=== PATIENT | female | born 1980 | race Caucasian/White ===

== ENCOUNTER 2016-08-26 21:27 | Emergency (ER) | payer OTHER ==
[~2016-08-26] VITALS: Ht 167.6 cm; Wt 178.1 kg
[~2016-08-26 21:27] MED LIST: ARIP1TAB46 PO; BUSP5TAB3 PO; LORA-474 PO; METH750T2 PO; PERC5TAB12 PO; SYNT50TA PO; VIST25CA PO; WELL150T PO
[2016-08-26 21:35] VITALS: BP 137/97; PULSE 113; RESP 16; TEMP 98; O2SAT 97
--- NOTE | 2016-08-26 23:33 | PD ---
HPI Chief Complaint: Pain: Acute or Chronic Time Seen by Provider: 23:20 Travel History International Travel<30 days: No Contact w/Intl Traveler<30days: No Traveled to known affect area: No History of Present Illness HPI The patient is a 36-year-old female with a history of cellulitis of the left leg. She has been seen at [facility] emergency department as well as her primary care physician, Dr. Mcneil in [facility]. She has been on clindamycin for this. Initially she was started on amoxicillin and then switched to doxycycline. She did better on doxycycline but she ran out and was put on clindamycin. She is allergic to sulfa. She has had a few more days of clindamycin left. She states when she elevates her leg she can feel pain in her left knee. PFSH Past Medical History Anemia: Yes Anxiety: Yes Depression: Yes Cancer: Yes (CERVICAL CANCER -RECENTLY DX) Diabetes: No Diminished Hearing: No Psychiatric: Yes Migraines: Yes Thyroid Disease: Yes (HYPOTHYROID) : 5 Para: 5 Miscarriage: 0 : 0 Ovarian Cysts: Yes Past Surgical History Abdominal Surgery: Yes (GASTRIC SLEEVE,UMBILICAL HERNIA REPAIRS X2) Section: Yes (X5) Cholecystectomy: Yes Hysterectomy: Yes Tonsillectomy: Yes Social History Alcohol Use: Yes (DRINKS ON OCCASION) Tobacco Use: No Substance Use: No Allergies-Medications (Allergen,Severity, Reaction): Coded Allergies: Septra (Verified Allergy, Intermediate, VOMITING/DIARRHEA/CHEST TIGHTNESS , 03/30/14) Reported Meds & Prescriptions Reported Meds & Active Scripts Active Clindamycin (Clindamycin HCl) 300 Mg Cap 300 Mg PO Q6H 10 Days Doxycycline Hyclate 100 Mg Cap 100 Mg PO BID Methocarbamol 750 Mg Tab 750 Mg PO QID PRN Reported Buspar (Buspirone HCl) 5 Mg Tab 5 Mg PO TID Synthroid 50 mcg (Levothyroxine Sodium) 50 Mcg Tab 50 Mcg PO DAILY Review of Systems Except as stated in HPI: all other systems reviewed are Neg Physical Exam Narrative GENERAL: Well-nourished, well-developed patient. The vital signs show a pulse rate of 113 with blood pressure 137/97. SKIN: Focused skin assessment warm/dry. There is no evidence of any cellulitis other than at the foot. She does not have any pitting edema present. HEAD: Normocephalic. EYES: No scleral icterus. No injection or drainage. NECK: Supple, trachea midline. No JVD or lymphadenopathy. CARDIOVASCULAR: Regular rate and rhythm without murmurs, gallops, or rubs. RESPIRATORY: Breath sounds equal bilaterally. No accessory muscle use. GASTROINTESTINAL: Abdomen soft, non-tender, nondistended. MUSCULOSKELETAL: No cyanosis, or edema. There is no cord palpated in the calf. BACK: Nontender without obvious deformity. No CVA tenderness. Data Data Last Documented VS Vital Signs Date Time Temp Pulse Resp B/P Pulse Ox O2 Delivery O2 Flow Rate FiO2 08/26/16 23:34 20 08/26/16 21:35 98.0 113 137/97 97 MDM Medical Decision Making Medical Screen Exam Complete: Yes Emergency Medical Condition: Yes Medical Record Reviewed: Yes Differential Diagnosis Worsening cellulitis, cellulitis unchanged, lymphadenitis Narrative Course I can find no evidence that her cellulitis is worsening. She does feel pain with elevation and this may be the lymph system carrying the infection to the popliteal nodes. This is where she feels some pain when she elevates her legs. There is no clinical evidence that the cellulitis is worsening, she has no erythema above the foot. Diagnosis Primary Impression: Cellulitis of left foot Additional Instructions: As we discussed, elevation helps the lymph flow as well as the blood flow. The pain may be from the lymph system caring away the germs from your foot to be killed behind the knee where the lymph nodes are. Follow-up with your primary care physician next week. Med/Other Pt SpecificInfo: Prescription(s) given Scripts Clindamycin 300 Mg [id number] Mg PO Q6H 10 Days Ref 0 Prov:Basilio Mercado MD 08/26/16 Doxycycline Hyclate 100 Mg [id number] Mg PO BID #28 CAP Ref 0 Prov:Basilio Mercado MD 08/26/16 Disposition: 01 DISCHARGE HOME Condition: Stable Basilio Mercado MD August 26, 2016 23:33
[2016-08-26] MEDS ORDERED: DOXY100C PO (23:39)
[2016-08-26] MEDS ORDERED: CLIN1CAP6 PO (23:39)
[2016-08-26] MEDS ORDERED: DOXYCYCLINE HYCLATE 100 MG CAP PO ONE (23:45)
[2016-08-26] MEDS ORDERED: AMIT50TA3 PO (23:49)
[2016-08-26] MEDS ORDERED: TOPA25TA8 PO (23:49)
[2016-08-26] MEDS ORDERED: LEVO.2 PO (23:49)
[2016-08-26] MEDS ORDERED: ALPR1TAB3 PO (23:49)
[2016-08-26] MEDS ORDERED: OMEP40CA2 PO (23:49)
[2016-08-26] MEDS ORDERED: METF500T PO (23:49)
[2016-08-26] MEDS ORDERED: BUSP15TA PO (23:49)
[2016-08-26 23:50] VITALS: BP 127/68
== END 2016-08-27 00:17 | disposition home or self-care (01) ==
LOC: PHED 21:27
DX: L03.116 Cellulitis of left lower limb (principal); D64.9 Anemia, unspecified; F32.9 Major depressive disorder, single episode, unspecified; F41.9 Anxiety disorder, unspecified; E03.9 Hypothyroidism, unspecified; Z88.2 Allergy status to sulfonamides
CPT/HCPCS: 99283

== ENCOUNTER 2018-04-29 13:57 | Inpatient (IN) ==
[2018-04-29] MEDS ORDERED: Morphine Inj 4 MG/ML Vial IV.PUSH ONE (14:10)
--- NOTE | 2018-04-29 14:16 | ED ---
HPI General Chief Complaint: Abdominal Pain Stated Complaint: post op pain Time Seen by Provider: 04/29/18 14:10 Source: patient and family Mode of arrival: ambulatory Limitations: no limitations History of Present Illness HPI narrative: 37-year-old morbidly obese female patient with history of Charlie-en -Y bypass surgery, complicated by gastric ulcer and perforation, had surgery by Dr. Willis seen last week, and was released, had been seen again on Tuesday by Dr. Guidry who found that she had a UTI, returns to the ER today because of continued left upper quadrant abdominal pains. She denies any vomiting, fevers , or other symptoms. Her pain is in the left upper quadrant where the G-tube site is and is currently rated an 8 out of 10, constant and sharp. Modifying Factors: None Associated Signs & Symptoms: Left upper quadrant abdominal pain Risk Factors: Recent surgery Related Data Home Medications Medication Instructions Recorded Confirmed levothyroxine 75 mcg PO DAILY 04/20/18 04/29/18 levothyroxine 200 mcg PO DAILY 04/20/18 04/29/18 Previous Rx's Medication Instructions Recorded ciprofloxacin [Cipro] 500 mg PO Q12H #65 ml 04/26/18 hydrocodone-acetaminophen 15 ml PO Q6H PRN #180 ml 04/26/18 Allergies Allergy/AdvReac Type Severity Reaction Status Date / Time sulfamethoxazole Allergy Intermediate VOMITING/DIARRHEA/CHEST Verified 04/25/18 22:58 TIGHTNESS trimethoprim Allergy Intermediate VOMITING/DIARRHEA/CHEST Verified 04/25/18 22: 58 TIGHTNESS Review of Systems ROS: all other systems reviewed are negative [facility] Medical History Medical History Anxiety (Acute) GERD (gastroesophageal reflux disease) (Acute) H/O: hysterectomy (Acute) Hernia (Acute) Thyroid disease (Acute) Surgical History Surgical History Gastric bypass status for obesity (Acute) Hx of cholecystectomy (Acute) Hx of tonsillectomy (Acute) Previous section (Acute) Social History Social History Substance History: No History of Abuse Second Hand Smoke Exposure: Yes Smoking Status: Never smoker How Often Do You Have a Drink Containing Alcohol: Monthly or less Recent Travel in [facility] within the Last 8 Weeks: No Recent Out of Country Travel within the Last 8 Weeks: No Immunization History Tetanus Immunization: <5 Years Exam Narrative Exam Narrative: GENERAL: Well-developed morbidly obese female patient currently in moderate distress. Awake and oriented x3. SKIN: Focused skin assessment warm/dry. HEAD: Atraumatic. Normocephalic. EYES: Pupils equal and round. No scleral icterus. No injection or drainage. ENT: No nasal bleeding or discharge. Mucous membranes pink and moist. NECK: Trachea midline. No JVD. CARDIOVASCULAR: Regular rate and rhythm. No murmur appreciated. RESPIRATORY: No accessory muscle use. Clear to auscultation. Breath sounds equal bilaterally. GASTROINTESTINAL: Abdomen soft, obese, surgical incision sites healing well, J- tube appears to be in place, mildly tender palpation in the left upper quadrant , nondistended. MUSCULOSKELETAL: No obvious deformities. No clubbing. No cyanosis. No edema. NEUROLOGICAL: Awake and alert. No obvious cranial nerve deficits. Motor grossly within normal limits. Normal speech. PSYCHIATRIC: Appropriate mood and affect; insight and judgment normal. Course Initial Documented Vital Signs Temperature 98.7 F 04/29/18 13:59 Pulse Rate 90 04/29/18 13:59 Respiratory Rate 18 04/29/18 13:59 Blood Pressure 157/74 H 04/29/18 13:59 Pulse Oximetry 96 04/29/18 13:59 Last Documented Vital Signs Temperature 98.7 F 04/29/18 13:59 Pulse Rate 90 04/29/18 13:59 Respiratory Rate 18 04/29/18 13:59 Blood Pressure 157/74 H 04/29/18 13:59 Pulse Oximetry 96 04/29/18 13:59 Medical Decision Making [facility] Narrative Medical decision making narrative: CAT scan showing left lower lobe infiltrates concerning for underlying pneumonia. IV antibiotics were initiated in the ER after cultures were drawn. Lab work does show some leukocytosis. Patient has been on Cipro for the last 5 days. At this point, my plan would be to admit the patient for further treatment and also will need evaluation with Dr. Willis. Case is discussed with Dr. Rouse who is covering for Dr. Willis seen and there is supposed to be a left upper quadrant drain and a G-tube there. Patient can get G-tube feedings. Case is then discussed with Dr. Allen for admission Medical Screen Exam Complete: Yes Emergency Medical Condition: Yes Differential Diagnosis Differential Diagnosis: Surgical site tenderness versus gastritis versus pancreatitis versus acute intra-abdominal processes versus abscess formation Lab Data Lab results reviewed: Yes I reviewed the patient's lab results. Result diagrams: 04/29/18 15:30 04/29/18 15:30 Lab Results 04/29/18 04/29/18 Range/Units 15:30 15:30 WBC 11.2 H (4.0-11.0) th/mm3 RBC 3.84 L (4.00-5.30) mil/mm3 Hgb 11.3 L (11.6-15.3) gm/dL Hct 32.8 L (35.0-46.0) % MCV 85.4 (80.0-100.0) fL MCH 29.4 (27.0-34.0) pg MCHC 34.4 (32.0-36.0) % RDW 14.1 (11.6-17.2) % Plt Count 404 D (150-450) th/mm3 MPV 6.9 L (7.0-11.0) fL Neut % (Auto) 82.9 H (16.0-70.0) % Lymph % (Auto) 8.5 L (9.0-44.0) % Mcduffie % (Auto) 7.4 (0.0-8.0) % Eos % (Auto) 0.9 (0.0-4.0) % Baso % (Auto) 0.3 (0.0-2.0) % Neut # (Auto) 9.3 H (1.8-7.7) th/mm3 Lymph # (Auto) 1.0 (1.0-4.8) th/mm3 Mcduffie # (Auto) 0.8 (0.0-0.9) th/mm3 Eos # (Auto) 0.1 (0.0-0.4) th/mm3 Baso # (Auto) 0.0 (0.0-0.2) th/mm3 WBC Differential . Differential Comment Auto diff final Sodium 137 (136-145) meq/L Potassium 4.0 (3.5-5.1) meq/L Chloride 102 (98-107) meq/L Carbon Dioxide 27.6 (21.0-32.0) meq/L Anion Gap 7 (5-15) meq/L BUN 11 (7-18) mg/dL Creatinine 0.78 (0.50-1.00) mg/dL Estimated GFR 84 L (>89) mL/min Random Glucose 115 H (74-106) mg/dL Calcium 8.8 (8.5-10.1) mg/dL Magnesium 2.3 (1.5-2.5) mg/dL Total Bilirubin 0.3 (0.2-1.0) mg/dL AST 35 (15-37) U/L ALT 56 H (10-53) U/L Alkaline Phosphatase 240 H (45-117) U/L Total Protein 7.8 (6.4-8.2) g/dL Albumin 2.2 L (3.4-5.0) g/dL Lipase 76 (73-393) U/L Imaging Data Attestation: I personally reviewed and interpreted this imaging study as follows : Radiologist's impression: Abdomen/Pelvis CT 04/29/18 14:10 CONCLUSION: 1. Moderate size left pleural effusion and left lower lobe consolidation with volume loss. 2. Percutaneous postsurgical catheter in the left upper quadrant. No evidence of free fluid or air. 3. Significant streak-like motion degradation of the mid and lower images may obscure subtle findings. Discharge Plan Discharge Disposition Patient Disposition: ED Admit(ED Internal Use Only) Discharge Condition Condition: Stable Discharge Order Discharge Orders: ED Use Only Admit Order (Routine); Ordered 04/29/18 Ordered By: Luis Enrique Zayas Discharge Details Anticipated Discharge Date: 04/29/18 Diagnosis: Pneumonia Physicians Team ED Provider: Luis Enrique Zayas Rxs /Orders / Referrals /Forms Prescriptions: No Action hydrocodone-acetaminophen 7.5-325 mg/15 mL solution 15 ml PO Q6H PRN (Reason: Acute pain) Qty: 180 RF: 0 ciprofloxacin [Cipro] 500 mg/5 mL suspension,microcapsule recon 500 mg PO Q12H Qty: 65 RF: 0 levothyroxine 75 mcg Tablet 75 mcg PO DAILY RF: 0 levothyroxine 200 mcg Tablet 200 mcg PO DAILY RF: 0 Status ED Status: With Doctor
[2018-04-29 15:42] LABS: Baso % (Auto) 0.3 % (0.0-2.0); Eos # (Auto) 0.1 th/mm3 (0.0-0.4); Eos % (Auto) 0.9 % (0.0-4.0); Hematocrit 32.8 % (35.0-46.0); Hemoglobin 11.3 gm/dL (11.6-15.3); Lymph % (Auto) 8.5 % (9.0-44.0); Mean Corpuscular HGB Conc 34.4 % (32.0-36.0); Mean Corpuscular Hemoglobin 29.4 pg (27.0-34.0); Mean Corpuscular Volume 85.4 fL (80.0-100.0); Mean Platelet Volume 6.9 fL (7.0-11.0); Mono # (Auto) 0.8 th/mm3 (0.0-0.9); Mono % (Auto) 7.4 % (0.0-8.0); Neut # (Auto) 9.3 th/mm3 (1.8-7.7); Neut % (Auto) 82.9 % (16.0-70.0); Platelet Count 404 th/mm3 (150-450); Red Blood Count 3.84 mil/mm3 (4.00-5.30); Red Cell Distribution Width 14.1 % (11.6-17.2); White Blood Count 11.2 th/mm3 (4.0-11.0)
[2018-04-29 16:00] LABS: Albumin 2.2 g/dL (3.4-5.0); Anion Gap 7 meq/L (5-15); Aspartate Aminotransferase 35 U/L (15-37); Blood Urea Nitrogen 11 mg/dL (7-18); Calcium 8.8 mg/dL (8.5-10.1); Carbon Dioxide 27.6 meq/L (21.0-32.0); Chloride 102 meq/L (98-107); Glomerular Filtration Rate 84 mL/min (>89); Glucose,Random 115 mg/dL (74-106); Lipase 76 U/L (73-393); Magnesium 2.3 mg/dL (1.5-2.5); Sodium 137 meq/L (136-145)
[2018-04-29 16:04] LABS: Alanine Aminotransferase 56 U/L (10-53); Alkaline Phosphatase 240 U/L (45-117); Total Protein 7.8 g/dL (6.4-8.2)
--- NOTE | 2018-04-29 18:39 | CT ---
EXAM DATE: 04/29/2018 6:16 PM EST AGE/SEX: 37 years / Female INDICATIONS: Bariatric surgery two weeks ago; patient complains of pain and intermittent fever. CLINICAL DATA: This is the patient's initial encounter. Patient reports that signs and symptoms have been present for 3 days and indicates a pain score of 7/10. MEDICAL/SURGICAL HISTORY: Gastroesophageal reflux disease. Hypothyroidism. Hernia Hysterectom y. section. Cholecystectomy. Gastric bypass, tonsillectomy ORAL CONTRAST: No oral contrast ingested. RADIATION DOSE: 33.41 CTDI (mGy) ; Patient body habitus COMPAR[place]: [facility] [place] & [place]ELVIS W CONTRAST, 04/14/2018. . TECHNIQUE: Multiple contiguous axial images were obtained through the abdomen and pelvis following b olus infusion of 96 ml Omnipaque 350 (iohexol) nonionic water-soluble contrast as a single exam dos e. No oral contrast ingested. Using automated exposure control and adjustment of the mA and/or kV ac cording to patient size, radiation dose was kept as low as reasonably achievable to obtain optimal di agnostic quality images. DICOM format image data is available electronically for review and comparis on. FINDINGS: There is degradation of image quality in the mid and lower abdomen due to a combination of body size exceeding the [id number] of the scanner and multiple metallic wires within the scanning field of view. Lower Lungs: Interval development of moderate-sized left pleural effusion measuring 2.2 cm and consol idation with fine loss in the left lower lung. Liver: The liver has a homogeneous density without space-occupying lesion. There is no dilation of th e biliary tree. Spleen: Homogeneous density without enlargement. Pancreas: Unremarkable without mass or calcification. Kidneys: Normal in size and shape. No evidence of mass or hydronephrosis. Adrenal Glands: Unremarkable. Aorta: The aorta and proximal iliac vessels are grossly unremarkable without aneurysmal dilation. Bowel/Mesentery: There is a percutaneous tube passing into the left upper quadrant underneath the le ft hemidiaphragm and passing through the region of the gastric surgery. Anastomosis suture in the sto mach. No dilated loops of small or large bowel. No evidence of free intraperitoneal gas. Abdominal Wall: Intact. Retroperitoneum: No evidence of adenopathy in the retrocrural, para-aortic, or deep pelvic regions. Bladder: Contours are smooth. Reproductive Organs: No abnormal masses or calcifications seen. Inguinal: The inguinal region is unremarkable without evidence of adenopathy. Bony Structures: Unremarkable. CONCLUSION: 1. Moderate size left pleural effusion and left lower lobe consolidation with volume loss. 2. Percutaneous postsurgical catheter in the left upper quadrant. No evidence of free fluid or air. 3. Significant streak-like motion degradation of the mid and lower images may obscure subtle finding s. Electronically signed by: Jerry Mcclellan MD Board Certified Radiologist 04/29/2018 6:38 PM EST
[2018-04-29] MEDS ORDERED: Azithromycin Inj 500 MG in Sodium Chlor 0.9% Inj 250 ML IV.SIG ONE (18:51)
[2018-04-29] MEDS ORDERED: Bisacodyl 10 MG Supp RECTAL PRN (19:34)
[2018-04-29] MEDS ORDERED: Morphine Sulfate Inj 2 MG/ML Vial IV.PUSH PRN (19:34)
[2018-04-29] MEDS ORDERED: Acetaminophen 325 MG Tablet PO PRN (19:34)
--- NOTE | 2018-04-29 19:38 | P.HPIM ---
History of Present Illness Primary Care Physician: alma Mireles History of Present Illness: This is a 37-year-old female with a PMH of Depression, Morbid Obesity, h/o Charlie-en-Y and Hypothyroidism who presented to the ER w/ complaints of abdominal and back pain. Recent admit 04/14-04/24/18 for perforated ulcer, s/p repair by Dr. Almonte w/ J tube placement for nutrition and full liquid diet, was d/c'd home w/ [facility] [place], returned to ER on 04/26/18 for c/o abdominal pain, found to have UTI and d/c'd home on Cipro PO. Returns now w/ ongoing abdominal pain in addition to back pain. States pain is constant, worse w/ movement, back pain worse w/ deep breath, currently 7/10, non- radiating. Denies fever or chills. No nausea, vomiting or diarrhea. On arrival, BP 157/74, HR 90, O2 sat 96% on RA, Afebrile. WBC 11.2. Chemistry essentially unremarkable. UA with persistent UTI. CT Abdomen/Pelvis moderate left pleural effusion and left lower lobe consolidation, post surgical catheter left upper quadrant no free fluid or air. Findings reviewed by ER physician w/ Dr. Rouse, no emergent surgical intervention indicated at this time. S/p Cefepime/Zithro in ER. Diagnosis (1) PNA (pneumonia): (2) UTI (urinary tract infection): (3) Failure of outpatient treatment: (4) Gastric perforation: Inpatient Certification Inpatient Certification: I certify that the inpatient services were ordered in accordance with Medicare regulations governing the order. This includes certification that hospital inpatient services are reasonable and necessary and in the case of services not specified as inpatient-only under 42 CFR 419.22(n), that they are appropriately provided as inpatient services in accordance to with the 2-midnight benchmark under 43 CFR 412.3(e) Estimated Total Length of Stay (Days): 2 Plans for Post Hospital Care: Not yet determined Review of Systems PAST FAMILY HISTORY: Reviewed. No h/o DM or CAD Review of Systems: all other systems reviewed are negative [facility] Medical History Medical History Anxiety (Acute) GERD (gastroesophageal reflux disease) (Acute) H/O: hysterectomy (Acute) Hernia (Acute) Thyroid disease (Acute) Surgical History Surgical History Gastric bypass status for obesity (Acute) Hx of cholecystectomy (Acute) Hx of tonsillectomy (Acute) Previous section (Acute) Social History Social History Substance History: No History of Abuse Second Hand Smoke Exposure: Yes Smoking Status: Never smoker How Often Do You Have a Drink Containing Alcohol: Monthly or less Recent Travel in [facility] within the Last 8 Weeks: No Recent Out of Country Travel within the Last 8 Weeks: No Immunization History Tetanus Immunization: <5 Years Medications and Allergies Allergies Allergy/AdvReac Type Severity Reaction Status Date / Time sulfamethoxazole Allergy Intermediate VOMITING/DIARRHEA/CHEST Verified 04/25/18 22:58 TIGHTNESS trimethoprim Allergy Intermediate VOMITING/DIARRHEA/CHEST Verified 04/25/18 22: 58 TIGHTNESS Home Medications Medication Instructions Recorded Confirmed Type levothyroxine 75 mcg PO DAILY 04/20/18 04/29/18 History levothyroxine 200 mcg PO DAILY 04/20/18 04/29/18 History Active Medications: Active Medications Acetaminophen (Tylenol) 650 mg PO Q4H PRN PRN Reason: Temp > 100.4 Hydrocodone Bitart/Acetaminophen (Hycet 325/7.5 Mg Liq) 15 ml PO Q6H PRN PRN Reason: PAIN SCALE 3 TO 5 Al Hydroxide/Mg Hydroxide (Milk Of Magnesia Liq) 30 ml PO Q12H PRN PRN Reason: Mild Constipation Albuterol (Duoneb Neb (Prn)) 1 ampul NEB Q4HR NEB PRN PRN Reason: SOB/WHEEZING Bisacodyl (Dulcolax Supp) 10 mg RECTAL DAILY PRN PRN Reason: SEVERE CONSITIPATION Azithromycin 500 mg/ Sodium (Chloride) 250 mls @ 250 mls/hr IV.SIG ONCE ONE Stop: 04/29/18 19:50 Cefepime HCl 1,000 mg/ Sodium (Chloride) 100 mls @ 200 mls/hr IV.SIG Q12H JORGE Sodium Chloride (Ns Inj) 1,000 mls @ 100 mls/hr IV.CONT .Q10H JORGE Azithromycin 500 mg/ Sodium (Chloride) 250 mls @ 250 mls/hr IV.SIG Q24H JORGE Lactulose (Lactulose Liq) 30 ml PO DAILY PRN PRN Reason: SEVERE CONSITIPATION Levothyroxine Sodium (Synthroid) 75 mcg PO DAILY JORGE Levothyroxine Sodium (Synthroid) 200 mcg PO DAILY JORGE Morphine Sulfate (Morphine Inj) 2 mg IV.PUSH Q4H PRN PRN Reason: PAIN SCALE 6 TO 10 Ondansetron HCl (Zofran Inj) 4 mg IV.PUSH Q6H PRN PRN Reason: NAUSEA OR VOMITING Senna/Docusate Sodium (Jossie-Colace) 1 tab PO BID JORGE Sennosides (Senokot) 17.2 mg PO Q12H PRN PRN Reason: Moderate Constipation Sodium Chloride (Ns Flush) 2 ml IV.FLUSH PRN PRN PRN Reason: FLUSH AFTER USING IV ACCESS Sodium Chloride (Ns Flush) 2 ml IV.FLUSH BID JORGE Sodium Chloride (Ns Flush) 2 ml IV.FLUSH PRN PRN PRN Reason: FLUSH AFTER USING IV ACCESS Physical Exam Vital signs: Vital Signs 04/29/18 13:59 04/29/18 19:33 Temperature 98.7 F Pulse Rate 90 90 Respiratory Rate 18 20 Blood Pressure 157/74 H 123/62 Pulse Oximetry 96 97 Intake & Output 04/29/18 04/29/18 04/30/18 06:59 18:59 06:59 Weight 190.509 kg Narrative: PE: GENERAL: Pleasant young white female in no acute distress. Mother at bedside. SKIN: Focused skin assessment warm and dry. HEENT: PERRLA, EOMI. No scleral icterus or conjunctival pallor. No lid lag or facial droop. CARDIOVASCULAR: Regular rate and rhythm. No obvious murmurs to auscultation. No chest tenderness to palpation. RESPIRATORY: No obvious rhonchi or wheezing. Clear to auscultation. Breath sounds equal bilaterally. GASTROINTESTINAL: Abdomen soft, non-tender, nondistended. BS normal. J-tube in place, surgical sites clean, no evidence of infection. MUSCULOSKELETAL: Extremities without clubbing, cyanosis, or edema. No obvious deformities. NEUROLOGICAL: Awake, alert and oriented x4. No focal neurologic deficits. Moving both upper and lower extremities spontaneously. PSYCHIATRIC: Appropriate mood and affect. Insight and judgment normal. Results Labs CBC & Chem 7: 04/29/18 15:30 04/29/18 15:30 Imaging Impressions Abdomen/Pelvis CT 04/29/18 14:10 CONCLUSION: 1. Moderate size left pleural effusion and left lower lobe consolidation with volume loss. 2. Percutaneous postsurgical catheter in the left upper quadrant. No evidence of free fluid or air. 3. Significant streak-like motion degradation of the mid and lower images may obscure subtle findings. Caprini VTE Risk Assessment Caprini VTE Risk Assessment: No/Low Risk (score <= 1) Caprini Risk Assessment Model: Point Value = 1 Point Value = 2 Point Value = 3 Point Value = 5 Age 41-60 Minor surgery BMI > 25 kg/m2 Swollen legs Varicose veins or History of unexplained or recurrent spontaneous Oral contraceptives or hormone replacement Sepsis (< 1 month) Serious lung disease, including pneumonia (< 1 month) Abnormal pulmonary function Acute myocardial infarction Congestive heart failure (< 1 month) History of inflammatory bowel disease Medical patient at bed rest Age 61-74 Arthroscopic surgery Major open surgery (> 45 min) Laparoscopic surgery (> 45 min) Malignancy Confined to bed (> 72 hours) Immobilizing plaster cast Central venous access Age >= 75 History of VTE Family history of VTE Factor V Leiden Prothrombin [id number] Lupus anticoagulant Anticardiolipin antibodies Elevated serum homocysteine Heparin-induced thrombocytopenia Other congenital or acquired thrombophilia Stroke (< 1 month) Elective arthroplasty Hip, pelvis, or leg fracture Acute spinal cord injury (< 1 month) Prophylaxis Regimen: Total Risk Factor Score Risk Level Prophylaxis Regimen 0-1 Low Early ambulation 2 Moderate Order ONE of the following: *Sequential Compression Device (SCD) *Heparin 5000 units SQ BID 3-4 Higher Order ONE of the following medications: *Heparin 5000 units SQ TID *Enoxaparin/Lovenox 40 mg SQ daily (WT < 150 kg, CrCl > 30 mL/min) *Enoxaparin/Lovenox 30 mg SQ daily (WT < 150 kg, CrCl > 10-29 mL/min) *Enoxaparin/Lovenox 30 mg SQ BID (WT < 150 kg, CrCl > 30 mL/min) AND/OR *Sequential Compression Device (SCD) 5 or more Highest Order ONE of the following medications: *Heparin 5000 units SQ TID (Preferred with Epidurals) *Enoxaparin/Lovenox 40 mg SQ daily (WT < 150 kg, CrCl > 30 mL/min) *Enoxaparin/Lovenox 30 mg SQ daily (WT < 150 kg, CrCl > 10-29 mL/min) *Enoxaparin/Lovenox 30 mg SQ BID (WT < 150 kg, CrCl > 30 mL/min) AND *Sequential Compression Device (SCD) Assessment and Plan (1) PNA (pneumonia): Code(s): J18.9 - Pneumonia, unspecified organism Status: Acute (2) UTI (urinary tract infection): Code(s): N39.0 - Urinary tract infection, site not specified Status: Acute (3) Failure of outpatient treatment: Code(s): Z78.9 - Other specified health status Status: Acute (4) Gastric perforation: Code(s): K25.5 - Chronic or unspecified gastric ulcer with perforation Status: Acute Plan A/P: 1. UTI: persistent, continue IV Abx, IVF for hydration, monitor I/O, follow up cultures 2. Failed Outpt Tx: seen in ER on 04/26/18 for c/o abdominal pain, U/a +for UTI , d/c'd on Cipro PO, +compliant w/ meds 3. PNA: CT Abd/Pelvis w/ left pleural effusion and consolidation, likely cause of back pain, continue w/ IV Abx, DuoNeb prn, Incentive Spirometry, monitor O2 4. H/o Gastric Perforation: s/p surgical repair by Dr. Almonte 04/14, J- tube in place, surgical sites intact/no signs of infection, CT Abd/Pelvis w/ no concerning post surgical findings, Dr. Rouse consulted by ER physician, images reviewed, no emergent surgical intervention needed at this time. Continue full liquid diet. Gen Sx eval as needed. 5. DVT Prophylaxis: SCD/Teds 6. Social work for d/c planning as needed. 7. Case discussed w/ ER physician at length, labs/records/imaging reviewed by me.
[2018-04-29 20:16] LABS: Bacteria,Urine Occasional /hpf; Bilirubin,Urine Negative (Negative); Clarity,Urine Cloudy (Clear); Color,Urine Amber (Yellw/Straw); Glucose,Urine (UA) Negative (Negative); Leukocyte Esterase,Urine Small (Negative); Nitrite,Urine Negative (Negative); Squamous Epithelial Cell,Urine 18 /hpf (0-5)
[2018-04-29] MEDS: Sod Chloride 0.9% Inj 1,000 ML IV.CONT SCH (20:24)
[2018-04-29] MEDS: Senna/Docusate Sodium 8.6/50 MG Tablet PO SCH (21:48)
[2018-04-29] MEDS: Morphine Inj 4 MG/ML Vial IV.PUSH PRN (22:28)
[2018-04-30] MEDS: Sod Chloride 0.9% Inj 1,000 ML IV.CONT SCH ×3 (05:45→18:07)
[2018-04-30 06:29] LABS: Baso % (Auto) 0.5 % (0.0-2.0); Eos # (Auto) 0.1 th/mm3 (0.0-0.4); Eos % (Auto) 1.5 % (0.0-4.0); Hematocrit 31.8 % (35.0-46.0); Hemoglobin 10.9 gm/dL (11.6-15.3); Lymph # (Auto) 1.4 th/mm3 (1.0-4.8); Lymph % (Auto) 15.4 % (9.0-44.0); Mean Corpuscular HGB Conc 34.3 % (32.0-36.0); Mean Corpuscular Hemoglobin 29.4 pg (27.0-34.0); Mean Corpuscular Volume 85.8 fL (80.0-100.0); Mean Platelet Volume 6.9 fL (7.0-11.0); Mono # (Auto) 0.8 th/mm3 (0.0-0.9); Neut # (Auto) 6.7 th/mm3 (1.8-7.7); Neut % (Auto) 73.6 % (16.0-70.0); Platelet Count 415 th/mm3 (150-450); Red Blood Count 3.71 mil/mm3 (4.00-5.30); Red Cell Distribution Width 14.1 % (11.6-17.2); White Blood Count 9.1 th/mm3 (4.0-11.0)
[2018-04-30 06:42] LABS: Alanine Aminotransferase 45 U/L (10-53); Anion Gap 8 meq/L (5-15); Aspartate Aminotransferase 20 U/L (15-37); Blood Urea Nitrogen 12 mg/dL (7-18); Calcium 8.6 mg/dL (8.5-10.1); Carbon Dioxide 27.8 meq/L (21.0-32.0); Chloride 104 meq/L (98-107); Glomerular Filtration Rate 78 mL/min (>89); Glucose,Random 100 mg/dL (74-106); Potassium 3.8 meq/L (3.5-5.1); Sodium 140 meq/L (136-145)
[2018-04-30 06:45] LABS: Alkaline Phosphatase 209 U/L (45-117); Total Protein 7.4 g/dL (6.4-8.2)
[2018-04-30] MEDS: Levothyroxine 75 MCG Tablet PO SCH (08:39)
[2018-04-30] MEDS: Senna/Docusate Sodium 8.6/50 MG Tablet PO SCH ×2 (08:39→20:57)
[2018-04-30] MEDS: Acetaminophen-HYDROcodone 325/7.5 Liq 15 ML UDC PO PRN ×2 (08:40→15:04)
--- NOTE | 2018-04-30 10:41 | P.PNIM ---
Subjective Interval history: Follow-up for abdominal pain, recent Charlie-en-Y surgery for gastric perforation, pneumonia, UTI with failure of outpatient treatment, morbid obesity and depression. Patient seen and examined laying in bed, nurse in room patient stated feeling better. Patient denies any pain at this time, patient stated she had the pain medication. Patient denies any abdominal pain at this time, nausea, vomiting, or any discomfort. Patient denies any headache or dizziness, denies any chest pain or shortness of breath, denies any fever or chills. Patient stated she is usually getting up by herself without a problem at home Nurse discussed abdominal incisions, dry and intact, dressing just changed. Left JONAH drained. Physical Exam Vital signs: Vital Signs 04/29/18 13:59 04/29/18 19:33 04/29/18 19:34 Temperature 98.7 F Pulse Rate 90 90 90 Respiratory Rate 18 20 20 Blood Pressure 157/74 H 123/62 123/62 Pulse Oximetry 96 97 96 04/29/18 21:35 04/29/18 21:53 04/29/18 23:02 Temperature 98.8 F 100.4 F H Pulse Rate 89 95 H 93 H Respiratory Rate 20 20 19 Blood Pressure 133/68 173/78 H 134/62 Pulse Oximetry 97 96 95 04/30/18 04:15 04/30/18 08:00 Temperature 98.0 F 98.6 F Pulse Rate 85 82 Respiratory Rate 19 18 Blood Pressure 135/61 109/54 L Pulse Oximetry 95 93 L Intake & Output 04/29/18 04/30/18 04/30/18 18:59 06:59 18:59 Intake Total 830 / 830 Output Total Balance 830 / 830 - Weight 190.509 kg 190.5 kg Intake: IV 350 / 350 Azithromycin Inj 500 MG In NS 250 / 250 Inj 250 ML @ 250 mls/hr IV.SIG ONCE ONE Rx#:[id number] Maxipime Inj 2,000 MG In NS Inj 100 / 100 100 ML @ 200 mls/hr IV.SIG ONCE ONE Rx#:[id number] Oral 480 / 480 Output: Gastric Drainage Left Lower Quadrant Other: # Voids 1 Date of Last Bowel Movement 04/29/18 04/29/18 # Bowel Movements 0 Weight On Admission 190.509 kg Narrative: GENERAL: Well-developed, well-nourished, morbidly obese young female , laying in bed in no acute distress. SKIN: Warm and dry. HEAD: Atraumatic. Normocephalic. ENT: No nasal bleeding or discharge. Mucous membranes pink and moist. NECK: Trachea midline. No JVD. CARDIOVASCULAR: Regular rate and rhythm. RESPIRATORY: No accessory muscle use. Clear to auscultation. Breath sounds equal bilaterally. GASTROINTESTINAL: Abdomen morbidly obese, soft, non-tender, nondistended. Left upper quadrant G-tube in place, and JONAH drain in place with moderate amount of purulent drainage MUSCULOSKELETAL: Extremities without clubbing, cyanosis, or edema. No obvious deformities. NEUROLOGICAL: Awake and alert. No obvious cranial nerve deficits. Generalized weakness, moving all 4 extremities . Normal speech. PSYCHIATRIC: Appropriate mood and affect; insight and judgment normal. Results Labs CBC & Chem 7: 04/30/18 05:50 04/30/18 05:50 Imaging Imaging: Impressions Abdomen/Pelvis CT 04/29/18 14:10 CONCLUSION: 1. Moderate size left pleural effusion and left lower lobe consolidation with volume loss. 2. Percutaneous postsurgical catheter in the left upper quadrant. No evidence of free fluid or air. 3. Significant streak-like motion degradation of the mid and lower images may obscure subtle findings. Assessment and Plan (1) PNA (pneumonia): Code(s): J18.9 - Pneumonia, unspecified organism Status: Acute (2) UTI (urinary tract infection): Code(s): N39.0 - Urinary tract infection, site not specified Status: Acute (3) Failure of outpatient treatment: Code(s): Z78.9 - Other specified health status Status: Acute (4) Gastric perforation: Code(s): K25.5 - Chronic or unspecified gastric ulcer with perforation Status: Acute Plan This is a 37-year-old female with a PMH of Depression, Morbid Obesity, h/o Charlie- en-Y and Hypothyroidism who presented to the ER w/ complaints of abdominal and back pain. Recent admit 04/14-04/24/18 for perforated ulcer, s/p repair by Dr. Almonte w/ J tube placement for nutrition and full liquid diet, was d/c'd home w/ [facility], returned to ER on 04/26/18 for c/o abdominal pain, found to have UTI and d/c'd home on Cipro PO. Returns now w/ ongoing abdominal pain in addition to back pain. UTI Failed Outpt Tx - seen in ER on 04/26/18 for c/o abdominal pain, U/a +for UTI, d/c'd on Cipro PO, +compliant w/ meds - persistent, continue IV Abx cefepime and azithromycin -IVF for hydration -monitor I/O -UA culture indicated, follow up cultures PNA -CT Abd/Pelvis w/ left pleural effusion and consolidation, likely cause of back pain -continue w/ IV Abx, cefepime and azithromycin -DuoNeb prn - Incentive Spirometry, monitor O2 H/o Gastric Perforation -s/p surgical repair by Dr. Almonte 04/14 J-tube in place -surgical sites intact/no signs of infection,- -CT Abd/Pelvis w/ no concerning post surgical findings, -Consult general surgery, Dr. Rouse: Appreciate recommendation - images reviewed, no emergent surgical intervention needed at this time. - Continue full liquid diet. - Gen Sx eval as needed. DVT Prophylaxis: SCD/Teds Progress Note: Quality VTE Deep Vein Thrombosis/Pulmonary Embolism Present on Admission: No
--- NOTE | 2018-04-30 14:11 | P.DCO ---
Diagnosis (1) PNA (pneumonia): Status: Acute (2) UTI (urinary tract infection): Status: Acute (3) Failure of outpatient treatment: Status: Acute (4) Gastric perforation: Status: Acute Physical Therapy Order: Evaluate and treat, Improve ambulation and Strength and gait training Home Health Nursing Order: Medical education, Signs/symptoms of disease process, Medication education-adverse effect, Wound care and dressing changes and Nursing assessment with vital signs Case Management Consult Case Management Consult-Home Health: Yes I have seen patient Ivette Crawford on 04/30/18. My clinical findings support the need for the requested home health care services because: I certify that my clinical findings support that this patient is homebound because:
[2018-04-30] MEDS: Azithromycin Inj 500 MG in Sodium Chlor 0.9% Inj 250 ML IV.SIG SCH (20:56)
[2018-04-30] MEDS: Morphine Inj 4 MG/ML Vial IV.PUSH PRN (20:56)
[2018-05-01] MEDS: Morphine Inj 4 MG/ML Vial IV.PUSH PRN ×4 (01:13→20:00)
[2018-05-01] MEDS: Sod Chloride 0.9% Inj 1,000 ML IV.CONT SCH ×2 (03:00→12:16)
[2018-05-01] MEDS: Acetaminophen-HYDROcodone 325/7.5 Liq 15 ML UDC PO PRN ×3 (05:08→17:43)
[2018-05-01] MEDS: Levothyroxine 75 MCG Tablet PO SCH (09:35)
[2018-05-01] MEDS: Senna/Docusate Sodium 8.6/50 MG Tablet PO SCH ×2 (09:35→20:47)
--- NOTE | 2018-05-01 09:49 | P.PNGS ---
Subjective Patient reports: feels better, still having pain (left chest/abdomen) Physical Exam Vital signs: Vital Signs 04/30/18 12:00 04/30/18 16:00 04/30/18 19:17 Temperature 98.0 F 97.9 F 98.4 F Pulse Rate 79 88 84 Respiratory Rate 16 16 18 Blood Pressure 138/64 139/64 174/79 H Pulse Oximetry 96 93 L 97 04/30/18 21:19 05/01/18 00:16 05/01/18 08:00 Temperature 98.5 F 98.0 F Pulse Rate 82 76 Respiratory Rate 18 18 16 Blood Pressure 121/67 130/69 Pulse Oximetry 94 L 93 L Intake & Output 04/30/18 05/01/18 05/01/18 18:59 06:59 18:59 Intake Total 1100 / 1100 850 / 850 Output Total Balance 1075 / 1075 835 / 835 Weight 190.5 kg Intake: IV 1100 / 1100 850 / 850 NS Inj 1,000 ML @ 100 mls/hr IV 1000 / 1000 500 / 500 .CONT .Q10H JORGE Rx#:[id number] Azithromycin Inj 500 MG In NS 250 / 250 Inj 250 ML @ 250 mls/hr IV.SIG Q24H JORGE Rx#:[id number] Maxipime Inj 1,000 MG In NS Inj 100 / 100 100 / 100 100 ML @ 200 mls/hr IV.SIG Q12H JORGE Rx#:[id number] Output: Gastric Drainage 15 Left Lower Quadrant Other: # Voids 0 1 Date of Last Bowel Movement 04/29/18 04/29/18 # Bowel Movements 0 - Routine Abdominal Exam Present: soft (ttp at j tube, c/d/i, bertha scant output) Results - Labs 04/30/18 05:50 04/30/18 05:50 - Imaging Imaging: ITS Impressions Abdomen/Pelvis CT 04/29/18 14:10 CONCLUSION: 1. Moderate size left pleural effusion and left lower lobe consolidation with volume loss. 2. Percutaneous postsurgical catheter in the left upper quadrant. No evidence of free fluid or air. 3. Significant streak-like motion degradation of the mid and lower images may obscure subtle findings. Assessment and Plan - Plan hx rny bypass, recent perf s/p dx lap repair with drain, j tube PLAN abx pain control ok to start tube feeds via j tube- nutrition consult bertha bulb to sxn recommend recheck cxr in am, consider lasix vs IR for drainage of left chest effusion recommend spirometry, pulm toilet
--- NOTE | 2018-05-01 10:52 | P.PNIM ---
Subjective Interval history: Follow-up for abdominal pain, recent Charlie-en-Y surgery for gastric perforation, pneumonia, UTI with failure of outpatient treatment, morbid obesity and depression. Patient seen and examined laying in bed, denies any abdominal pain, nausea or vomiting at this time. Patient stated complaints mostly of back pain. Patient stated tolerating p.o. well. Patient also reported that she has been getting tube feeding at night at home. Patient denies any headache or dizziness, denies any chest pain or shortness of breath however complains of coughing. Patient denies any nausea or vomiting. Nurse reported no acute concerns. Physical Exam Vital signs: Vital Signs 04/30/18 12:00 04/30/18 16:00 04/30/18 19:17 Temperature 98.0 F 97.9 F 98.4 F Pulse Rate 79 88 84 Respiratory Rate 16 16 18 Blood Pressure 138/64 139/64 174/79 H Pulse Oximetry 96 93 L 97 04/30/18 21:19 05/01/18 00:16 05/01/18 08:00 Temperature 98.5 F 98.0 F Pulse Rate 82 76 Respiratory Rate 18 18 16 Blood Pressure 121/67 130/69 Pulse Oximetry 94 L 93 L Intake & Output 04/30/18 05/01/18 05/01/18 18:59 06:59 18:59 Intake Total 1100 / 1100 850 / 850 Output Total Balance 1075 / 1075 835 / 835 Weight 190.5 kg Intake: IV 1100 / 1100 850 / 850 NS Inj 1,000 ML @ 100 mls/hr IV 1000 / 1000 500 / 500 .CONT .Q10H JORGE Rx#:[id number] Azithromycin Inj 500 MG In NS 250 / 250 Inj 250 ML @ 250 mls/hr IV.SIG Q24H JORGE Rx#:[id number] Maxipime Inj 1,000 MG In NS Inj 100 / 100 100 / 100 100 ML @ 200 mls/hr IV.SIG Q12H JORGE Rx#:[id number] Output: Gastric Drainage Left Lower Quadrant Other: # Voids 0 1 Date of Last Bowel Movement 04/29/18 04/29/18 # Bowel Movements 0 Narrative: GENERAL: Well-developed, well-nourished, morbidly obese young female , laying in bed in no acute distress. SKIN: Warm and dry. HEAD: Atraumatic. Normocephalic. ENT: No nasal bleeding or discharge. Mucous membranes pink and moist. NECK: Trachea midline. No JVD. CARDIOVASCULAR: Regular rate and rhythm. RESPIRATORY: No accessory muscle use. Clear to auscultation. Breath sounds equal bilaterally. GASTROINTESTINAL: Abdomen morbidly obese, soft, non-tender, nondistended. Left upper quadrant G-tube in place, and JONAH drain in place with moderate amount of purulent drainage MUSCULOSKELETAL: Extremities without clubbing, cyanosis, or edema. No obvious deformities. NEUROLOGICAL: Awake and alert. No obvious cranial nerve deficits. Generalized weakness, moving all 4 extremities . Normal speech. PSYCHIATRIC: Appropriate mood and affect; insight and judgment normal. Results Labs CBC & Chem 7: 04/30/18 05:50 04/30/18 05:50 Labs: Microbiology 04/29/18 09:57 Clean Catch Urine Urine Culture - Final 50-100,000 cfu/mL mixed fiorella (probable contaminants ) 04/29/18 19:38 Blood - Peripheral Aerobic Blood Culture - Preliminary No growth in 1 day 04/29/18 19:38 Blood - Peripheral Anaerobic Blood Culture - Preliminary No growth in 1 day 04/29/18 19:45 Blood - Peripheral Aerobic Blood Culture - Preliminary No growth in 1 day 04/29/18 19:45 Blood - Peripheral Anaerobic Blood Culture - Preliminary No growth in 1 day Assessment and Plan (1) PNA (pneumonia): Code(s): J18.9 - Pneumonia, unspecified organism Status: Acute (2) UTI (urinary tract infection): Code(s): N39.0 - Urinary tract infection, site not specified Status: Acute (3) Failure of outpatient treatment: Code(s): Z78.9 - Other specified health status Status: Acute (4) Gastric perforation: Code(s): K25.5 - Chronic or unspecified gastric ulcer with perforation Status: Acute Plan This is a 37-year-old female with a PMH of Depression, Morbid Obesity, h/o Charlie- en-Y and Hypothyroidism who presented to the ER w/ complaints of abdominal and back pain. Recent admit 04/14-04/24/18 for perforated ulcer, s/p repair by Dr. Almonte w/ J tube placement for nutrition and full liquid diet, was d/c'd home w/ [facility], returned to ER on 04/26/18 for c/o abdominal pain, found to have UTI and d/c'd home on Cipro PO. Returns now w/ ongoing abdominal pain in addition to back pain. UTI Failed Outpt Tx - seen in ER on 04/26/18 for c/o abdominal pain, U/a +for UTI, d/c'd on Cipro PO, +compliant w/ meds - persistent, continue IV Abx cefepime and azithromycin -IVF for hydration -monitor I/O -UA culture indicated, follow up cultures PNA Left pleural effusion and consolidation -CT Abd/Pelvis w/ left pleural effusion and consolidation, likely cause of back pain. -continue w/ IV Abx, cefepime and azithromycin -DuoNeb prn, add DuoNeb scheduled - Incentive Spirometry, monitor O2 -Add incentive spirometer -Pulmonary toilet -Recheck chest x-ray in a.m -Add Lasix and replace KCl as needed, monitor BMP --Recheck chest x-ray in a.m., consult interventional radiology for possible drainage of left chest effusion H/o Gastric Perforation HX RnY Bypass, with recent perforation s/p Dx lap repair with drain and J tube -s/p surgical repair by Dr. Almonte 04/14 -J-tube in place -surgical sites intact/no signs of infection,- -CT Abd/Pelvis w/ no concerning post surgical findings, -General surgery following, Dr. Rouse: Appreciate recommendation, okay to start tube feeds via G-tube - images reviewed, no emergent surgical intervention needed at this time. - Continue full liquid diet. -Dietitian consult for to be tube feeding at night DVT Prophylaxis: SCD/Teds, not on any anticoagulation for possible procedure Progress Note: Quality VTE Deep Vein Thrombosis/Pulmonary Embolism Present on Admission: No
[2018-05-01 14:44] LABS: INR 1.1 Ratio; Prothrombin Time 10.7 sec (9.8-11.6)
--- NOTE | 2018-05-01 15:08 | US ---
EXAM DATE: 05/01/2018 3:06 PM EST AGE/SEX: 37 years / Female INDICATIONS: Left pleural effusion. CLINICAL DATA: This is the patient's initial encounter. Patient reports that signs and symptoms have been present for 1 day and indicates a pain score of 7/10. MEDICAL/SURGICAL HISTORY: . Anxiety. GERD. Hernia. Thyroid disease. Hysterectomy. Gastric byp ass. Cholecystectomy. Tonsillectomy. section. COMPARISON: [facility], CTA PULMONARY W CONTRAST W 3D, 04/14/2018. . MEASUREMENTS: Skin To Parietal Pleura:__Inadequate fluid Skin To Max Safe Depth:__Inadequate fluid Estimated Fluid Volume:__Inadequate fluid Fluid Composition:__inadequate fluid FINDINGS: No marking was performed. No significant left pleural fluid is visualized. CONCLUSION: No left pleural effusion is visualized. Electronically signed by: Boris Jain MD Board Certified Radiologist 05/01/2018 3:07 PM EST
--- NOTE | 2018-05-01 15:21 | P.DIET ---
Nutritional Evaluation Type of nutrition evaluation: initial Nutrition consult regarding: Tube Feeding Nutrition screening: [facility] Objective - Diagnosis Pneumonia - Objective Body Mass Index: 68 [place] body weight: 59 kg (130 lbs ) % IBW: 322 Body Weight Used for Calculations: IBW (59kg) Energy Needs - Lower Range (kCal/kg): 30 Energy Needs - Upper Range (kCal/kg): 35 Lower Limit kCal/kg (kCals): 1,770 Upper Limit kCal/kg (kCals): 2,065 Lower Limit Protein Factor (Grams per Kg): 1.2 Upper Limit Protein Factor (Grams per Kg): 1.5 Lower Protein Needs (Protein): 71 Upper Protein Needs (Protein): 89 Dietitian Reviewed in Medical Record: Current diet, Curent medications, Intake & Output, Medical history, Tube feeding Diet Order: Full liquid Oral Diet Intake Amount: Fair 50-75% Objective Comments: PMH; morbid obesity, billy en y bypass complicated by ulcer perforation Labs; reviewed Medications; lasix, synthroid Assessment Assessment: [facility] for new TF; Pt recently admitted to [facility] with perforated ulcer on 04/14 with J tube placement and returns to with abdominal and back pain, foudn to have pneumonia. Per pt and THEA Rushing, pt was receiving TF overnight at home prior to most recent admission and following full liquid diet during the day. Right now pt is currently on full liquids and reports eating popsicles, yogurt, pudding etc during the day. Spoke with THEA Rushing who reports that she would like to begin TF again overnight. Pt was unable to recall her usual TF formula but said that her family is going to bring the formula in from home. Until family members bring in TF formula will make new recommendations. TF recs are as follows; Jevity 1.5 running at 80ml per hour for 12 hours overnight to provide 1440kcal, 61g protein, 730ml free water to provide ~80% of pt's needs since she is consuming some food by mouth. Once family brings in home TF formula [employer] aware to begin home regimen. Labs and medications reviewed. Will continue to monitor clinical course and TF tolerance. Recommendations: 1. Continue with full liquid diet 2. Begin TF with Jevity 1.5 @ 80ml/hour x12 hours overnight to meet roughly 80% of pt's assessed nutritional needs 3. Continue with home TF regimen once family brings in formula 4. Monitor tolerance to TF 5. Continue to monitor clinical course Dietitian to Monitor: Lab values, Tube feeding tolerance, PO Intake, Medical course
[2018-05-01] MEDS: Azithromycin Inj 500 MG in Sodium Chlor 0.9% Inj 250 ML IV.SIG SCH (20:46)
[2018-05-02 05:17] LABS: Hematocrit 31.1 % (35.0-46.0); Hemoglobin 10.8 gm/dL (11.6-15.3); Mean Corpuscular HGB Conc 34.6 % (32.0-36.0); Mean Corpuscular Hemoglobin 29.2 pg (27.0-34.0); Mean Corpuscular Volume 84.5 fL (80.0-100.0); Mean Platelet Volume 7.2 fL (7.0-11.0); Platelet Count 427 th/mm3 (150-450); Red Blood Count 3.68 mil/mm3 (4.00-5.30); Red Cell Distribution Width 14.1 % (11.6-17.2); White Blood Count 11.5 th/mm3 (4.0-11.0)
[2018-05-02 05:41] LABS: Calcium 8.8 mg/dL (8.5-10.1); Carbon Dioxide 26.6 meq/L (21.0-32.0)
[2018-05-02] MEDS: Acetaminophen-HYDROcodone 325/7.5 Liq 15 ML UDC PO PRN ×3 (06:13→20:41)
[2018-05-02] MEDS: Levothyroxine 75 MCG Tablet PO SCH (09:06)
[2018-05-02] MEDS: Senna/Docusate Sodium 8.6/50 MG Tablet PO SCH ×2 (09:06→20:43)
[2018-05-02] MEDS: Sod Chloride 0.9% Inj 1,000 ML IV.CONT SCH ×2 (09:20→17:51)
[2018-05-02] MEDS: Azithromycin Inj 500 MG in Sodium Chlor 0.9% Inj 250 ML IV.SIG SCH ×2 (09:20→19:44)
--- NOTE | 2018-05-02 09:29 | XR ---
EXAM DATE: 05/02/2018 9:21 AM EST AGE/SEX: 37 years / Female INDICATIONS: Left Effusion. Patient complains of chest pain when breathing in. CLINICAL DATA: This is the patient's subsequent encounter. Patient reports that signs and symptoms h ave been present for 4 - 6 days and indicates a pain score of 5/10. MEDICAL/SURGICAL HISTORY: . Gastroesophageal reflux disease. Hypothyroidism. Hernia. . Hystere ctomy. section. Cholecystectomy. Gastric bypass, tonsillectomy. COMPARISON: [facility], CTA PULMONARY W CONTRAST W 3D, 04/14/2018. [facility], CHEST 1V SINGLE AP, 04/14/2018 . . FINDINGS: Portable AP view of the chest demonstrates a normal-sized cardiac silhouette. There is a left basilar pleural-parenchymal opacity with obscuration of the left hemidiaphragm. Right lung is clear. No pneu mothorax is visualized. Bones demonstrate no acute finding. CONCLUSION: Left basilar opacity characteristic of pleural effusion with associated volume loss and/or airspace c onsolidation Electronically signed by: Boris Jain MD Board Certified Radiologist 05/02/2018 9:27 AM EST
[2018-05-02] MEDS: Morphine Inj 4 MG/ML Vial IV.PUSH PRN ×2 (10:30→17:50)
--- NOTE | 2018-05-02 14:25 | P.PNIM ---
Subjective Interval history: Follow-up for abdominal pain, recent Charlie-en-Y surgery for gastric perforation, pneumonia, UTI with failure of outpatient treatment, morbid obesity and depression. Patient seen and examined, laying in bed, stated feeling better. Patient stated still having abdominal pain, but denies any nausea or vomiting. Patient still complaining of coughing but not coughing up any sputum. Patient denies any shortness of breath, dizziness, or chest pain. Patient denies any fever or chills. Physical Exam Vital signs: Vital Signs 05/01/18 16:00 05/01/18 20:55 05/01/18 20:58 Temperature 98.4 F 97.9 F Pulse Rate 96 H 81 80 Respiratory Rate 16 18 18 Blood Pressure 131/62 120/68 Pulse Oximetry 95 97 05/02/18 00:30 05/02/18 00:45 05/02/18 04:40 Temperature 98.0 F 97.8 F Pulse Rate 86 96 H 85 Respiratory Rate 18 18 18 Blood Pressure 112/59 L 117/62 Pulse Oximetry 92 L 92 L 05/02/18 07:55 05/02/18 08:00 05/02/18 11:23 Temperature 97.6 F Pulse Rate 84 100 H 78 Respiratory Rate 18 18 16 Blood Pressure 131/61 Pulse Oximetry 95 05/02/18 11:56 05/02/18 12:00 Temperature 98.0 F Pulse Rate 90 Respiratory Rate 18 18 Blood Pressure 124/59 L Pulse Oximetry 95 Intake & Output 05/01/18 05/02/18 05/02/18 18:59 06:59 18:59 Intake Total 100 / 100 600 / 600 100 / 100 Balance 100 / 100 600 / 600 100 / 100 Weight 190.5 kg Intake: IV 100 / 100 100 / 100 Maxipime Inj 1,000 MG In NS Inj 100 / 100 100 / 100 100 ML @ 200 mls/hr IV.SIG Q12H JORGE Rx#:[id number] Oral 600 / 600 Other: # Voids 1 1 1 Date of Last Bowel Movement 04/29/18 04/29/18 05/02/18 # Bowel Movements 0 1 Narrative: GENERAL: Well-developed, well-nourished, morbidly obese young female , laying in bed in no acute distress. SKIN: Warm and dry. HEAD: Atraumatic. Normocephalic. ENT: No nasal bleeding or discharge. Mucous membranes pink and moist. NECK: Trachea midline. No JVD. CARDIOVASCULAR: Regular rate and rhythm. RESPIRATORY: No accessory muscle use. Clear to auscultation. Breath sounds equal bilaterally. GASTROINTESTINAL: Abdomen morbidly obese, soft, non-tender, nondistended. Left upper quadrant G-tube in place, and JONAH drain in place with moderate amount of purulent drainage MUSCULOSKELETAL: Extremities without clubbing, cyanosis, or edema. No obvious deformities. NEUROLOGICAL: Awake and alert. No obvious cranial nerve deficits. Generalized weakness, moving all 4 extremities . Normal speech. PSYCHIATRIC: Appropriate mood and affect; insight and judgment normal. Results Labs CBC & Chem 7: 05/02/18 04:27 05/02/18 04:27 Labs: Microbiology 04/29/18 19:38 Blood - Peripheral Aerobic Blood Culture - Preliminary No growth in 3 days 04/29/18 19:38 Blood - Peripheral Anaerobic Blood Culture - Preliminary No growth in 3 days 04/29/18 19:45 Blood - Peripheral Aerobic Blood Culture - Preliminary No growth in 3 days 04/29/18 19:45 Blood - Peripheral Anaerobic Blood Culture - Preliminary No growth in 3 days Imaging Imaging: Impressions Chest Ultrasound 05/01/18 00:00 CONCLUSION: No left pleural effusion is visualized. Chest X-Ray 05/02/18 00:00 CONCLUSION: Left basilar opacity characteristic of pleural effusion with associated volume loss and/or airspace consolidation Assessment and Plan (1) PNA (pneumonia): Code(s): J18.9 - Pneumonia, unspecified organism Status: Acute (2) UTI (urinary tract infection): Code(s): N39.0 - Urinary tract infection, site not specified Status: Acute (3) Failure of outpatient treatment: Code(s): Z78.9 - Other specified health status Status: Acute (4) Gastric perforation: Code(s): K25.5 - Chronic or unspecified gastric ulcer with perforation Status: Acute Plan This is a 37-year-old female with a PMH of Depression, Morbid Obesity, h/o Charlie- en-Y and Hypothyroidism who presented to the ER w/ complaints of abdominal and back pain. Recent admit 04/14-04/24/18 for perforated ulcer, s/p repair by Dr. Almonte w/ J tube placement for nutrition and full liquid diet, was d/c'd home w/ [facility], returned to ER on 04/26/18 for c/o abdominal pain, found to have UTI and d/c'd home on Cipro PO. Returns now w/ ongoing abdominal pain in addition to back pain. UTI Failed Outpt Tx - seen in ER on 04/26/18 for c/o abdominal pain, U/a +for UTI, d/c'd on Cipro PO, +compliant w/ meds - persistent, continue IV Abx cefepime and azithromycin -IVF for hydration -monitor I/O -UA culture: E. coli, sensitive to cefepime PNA Left pleural effusion and consolidation -CT Abd/Pelvis w/ left pleural effusion and consolidation, likely cause of back pain. -continue w/ IV Abx, cefepime and azithromycin -DuoNeb prn, add DuoNeb scheduled - Incentive Spirometry, monitor O2 -Add incentive spirometer -Pulmonary toilet -Add Lasix and replace KCl as needed, monitor BMP -Recheck chest x-ray 05/02/18: Left basilar opacity characteristic of left pleural effusion with associated volume loss and/or airspace consolidation -consult interventional radiology for possible drainage of left chest effusion : Chest ultrasound showed no significant left pleural effusion visualized -Monitor CBC, CMP and CRP H/o Gastric Perforation HX RnY Bypass, with recent perforation s/p Dx lap repair with drain and J tube -s/p surgical repair by Dr. Almonte 04/14 -J-tube in place -surgical sites intact/no signs of infection,- -CT Abd/Pelvis w/ no concerning post surgical findings, -General surgery following, Dr. Rouse: Appreciate recommendation, okay to start tube feeds via G-tube - images reviewed, no emergent surgical intervention needed at this time. - Continue full liquid diet. -Dietitian consult for to be tube feeding at night -Restart on tube feeding at night times 12 hours with Jevity 1.5 at 80 mL/h DVT Prophylaxis: SCD/Teds, not on any anticoagulation for possible procedure Progress Note: Quality VTE Deep Vein Thrombosis/Pulmonary Embolism Present on Admission: No
[2018-05-02 22:10] LABS: Baso % (Auto) 0.5 % (0.0-2.0); Eos # (Auto) 0.2 th/mm3 (0.0-0.4); Eos % (Auto) 2.2 % (0.0-4.0); Hematocrit 30.9 % (35.0-46.0); Hemoglobin 10.9 gm/dL (11.6-15.3); Lymph # (Auto) 1.8 th/mm3 (1.0-4.8); Lymph % (Auto) 20.8 % (9.0-44.0); Mean Corpuscular HGB Conc 35.2 % (32.0-36.0); Mean Corpuscular Hemoglobin 29.2 pg (27.0-34.0); Mean Corpuscular Volume 82.9 fL (80.0-100.0); Mean Platelet Volume 6.6 fL (7.0-11.0); Mono # (Auto) 0.6 th/mm3 (0.0-0.9); Mono % (Auto) 7.2 % (0.0-8.0); Neut # (Auto) 5.9 th/mm3 (1.8-7.7); Neut % (Auto) 69.3 % (16.0-70.0); Platelet Count 437 th/mm3 (150-450); Red Blood Count 3.73 mil/mm3 (4.00-5.30); Red Cell Distribution Width 14.2 % (11.6-17.2); White Blood Count 8.5 th/mm3 (4.0-11.0)
[2018-05-03] MEDS: Morphine Inj 4 MG/ML Vial IV.PUSH PRN ×3 (00:22→10:33)
[2018-05-03] MEDS: Acetaminophen-HYDROcodone 325/7.5 Liq 15 ML UDC PO PRN ×3 (03:03→14:34)
[2018-05-03 06:08] LABS: Albumin 2.1 g/dL (3.4-5.0); Anion Gap 7 meq/L (5-15); Aspartate Aminotransferase 14 U/L (15-37); Blood Urea Nitrogen 11 mg/dL (7-18); Calcium 8.3 mg/dL (8.5-10.1); Chloride 103 meq/L (98-107); Glomerular Filtration Rate 81 mL/min (>89); Glucose,Random 105 mg/dL (74-106); Potassium 3.3 meq/L (3.5-5.1); Sodium 138 meq/L (136-145)
[2018-05-03 06:09] LABS: Alanine Aminotransferase 21 U/L (10-53)
[2018-05-03 06:11] LABS: Alkaline Phosphatase 152 U/L (45-117); Total Protein 7.2 g/dL (6.4-8.2)
[2018-05-03] MEDS: Sod Chloride 0.9% Inj 1,000 ML IV.CONT SCH (06:13)
[2018-05-03] MEDS: Senna/Docusate Sodium 8.6/50 MG Tablet PO SCH (08:13)
[2018-05-03] MEDS: Levothyroxine 75 MCG Tablet PO SCH (08:13)
--- NOTE | 2018-05-03 18:38 | P.DS ---
Date of admission: 04/29/18 19:33 Primary care physician: alma Mireles Brief History from admission: This is a 37-year-old female with a PMH of Depression, Morbid Obesity, h/o Charlie- en-Y and Hypothyroidism who presented to the ER w/ complaints of abdominal and back pain. Recent admit 04/14-04/24/18 for perforated ulcer, s/p repair by Dr. Almonte w/ J tube placement for nutrition and full liquid diet, was d/c'd home w/ [facility], returned to ER on 04/26/18 for c/o abdominal pain, found to have UTI and d/c'd home on Cipro PO. Returns now w/ ongoing abdominal pain in addition to back pain. States pain is constant, worse w/ movement, back pain worse w/ deep breath, currently 7/10, non-radiating. Denies fever or chills. No nausea , vomiting or diarrhea. On arrival, BP 157/74, HR 90, O2 sat 96% on RA, Afebrile. WBC 11.2. Chemistry essentially unremarkable. UA with persistent UTI. CT Abdomen/Pelvis moderate left pleural effusion and left lower lobe consolidation, post surgical catheter left upper quadrant no free fluid or air. Findings reviewed by ER physician w/ Dr. Rouse, no emergent surgical intervention indicated at this time. S/p Cefepime/Zithro in ER. DS: Medications - Discharge Medications Prescriptions: azithromycin [Zithromax] 250 mg PO DAILY #3 tab DS: Summary Hospital Course: Patient was initially admitted and started on antibiotics out of concern for possible left lower lobe pneumonia. Chest ultrasound was actually negative for any pleural effusion on the left side. Patient's urine culture and blood cultures were also negative. Patient was tolerating p.o. intake well and deemed no need for further surgical intervention from general surgery standpoint. Patient's respiratory status returned to baseline and she denied having any urinary symptoms. Patient has met maximal benefit from hospitalization is clinically stable for discharge. - Time Spent with Patient Total time spent providing and/or coordinating discharge services: Less than 30 minutes - Quality: VTE Deep Vein Thrombosis/Pulmonary Embolism Present on Admission: No Exam Vital signs: Vital Signs 05/02/18 20:00 05/02/18 21:27 05/02/18 22:00 Temperature 98.5 F 98.0 F Pulse Rate 87 83 103 H Respiratory Rate 16 15 16 Blood Pressure 141/64 H 132/58 L Pulse Oximetry 94 L 91 L 05/03/18 00:00 05/03/18 00:25 05/03/18 04:10 Temperature 98.3 F Pulse Rate 84 85 Respiratory Rate 16 16 17 Blood Pressure 112/55 L Pulse Oximetry 91 L 05/03/18 07:43 05/03/18 08:00 05/03/18 09:20 Temperature 98.0 F Pulse Rate 78 79 Respiratory Rate 14 16 18 Blood Pressure 117/53 L Pulse Oximetry 95 05/03/18 12:00 05/03/18 15:00 Temperature 97.9 F Pulse Rate 80 65 Respiratory Rate 18 16 Blood Pressure 143/63 H Pulse Oximetry 96 Intake & Output 05/02/18 05/03/18 05/03/18 18:59 06:59 18:59 Intake Total 100 / 100 1860 / 1860 100 / 100 Output Total 20 / 20 10 / 10 Balance 80 / 80 1850 / 1850 100 / 100 Weight 190.2 kg Intake: IV 100 / 100 1350 / 1350 100 / 100 NS Inj 1,000 ML @ 100 mls/hr IV 1000 / 1000 .CONT .Q10H JORGE Rx#:[id number] Azithromycin Inj 500 MG In NS 250 / 250 Inj 250 ML @ 250 mls/hr IV.SIG Q24H JORGE Rx#:[id number] Maxipime Inj 1,000 MG In NS Inj 100 / 100 100 / 100 100 / 100 100 ML @ 200 mls/hr IV.SIG Q12H JOGRE Rx#:[id number] Oral 510 / 510 Output: Wound Drainage 10 10 Left Lower Abdomen JONAH Drain 10 10 Other: # Voids 1 0 4 Date of Last Bowel Movement 05/02/18 05/02/18 05/03/17 # Bowel Movements 2 0 2 Narrative: Lungs heard both anteriorly and posteriorly which are clear, unlabored breathing Heart sounds regular rate and rhythm Morbidly obese white female, lying in bed, awake and alert, no acute distress Grossly intact motor function of all 4 extremities No facial droop, no slurred speech Pleasant demeanor Results Procedures completed during hospitalization: none Labs on day of discharge: Labs from last 24 hours 05/03/18 05/02/18 04:02 21:57 WBC 8.5 RBC 3.73 L Hgb 10.9 L Hct 30.9 L MCV 82.9 MCH 29.2 MCHC 35.2 RDW 14.2 Plt Count 437 MPV 6.6 L Neut % (Auto) 69.3 Lymph % (Auto) 20.8 [place] % (Auto) 7.2 Eos % (Auto) 2.2 Baso % (Auto) 0.5 Neut # (Auto) 5.9 Lymph # (Auto) 1.8 [place] # (Auto) 0.6 Eos # (Auto) 0.2 Baso # (Auto) 0.0 WBC Differential . Differential Comment Auto diff final Sodium 138 Potassium 3.3 L Chloride 103 Carbon Dioxide 28.0 Anion Gap 7 BUN 11 Creatinine 0.80 Estimated GFR 81 L Random Glucose 105 Calcium 8.3 L Total Bilirubin 0.2 AST 14 L ALT 21 Alkaline Phosphatase 152 H Total Protein 7.2 Albumin 2.1 L Preliminary micro results at discharge 04/29/18 19:38 Aerobic Blood Culture - Preliminary Blood - Peripheral No growth in 4 days Anaerobic Blood Culture - Preliminary No growth in 4 days 04/29/18 19:45 Aerobic Blood Culture - Preliminary Blood - Peripheral No growth in 4 days Anaerobic Blood Culture - Preliminary No growth in 4 days - Impressions ITS Impressions Abdomen/Pelvis CT 04/29/18 14:10 CONCLUSION: 1. Moderate size left pleural effusion and left lower lobe consolidation with volume loss. 2. Percutaneous postsurgical catheter in the left upper quadrant. No evidence of free fluid or air. 3. Significant streak-like motion degradation of the mid and lower images may obscure subtle findings. Chest Ultrasound 05/01/18 00:00 CONCLUSION: No left pleural effusion is visualized. Chest X-Ray 05/02/18 00:00 CONCLUSION: Left basilar opacity characteristic of pleural effusion with associated volume loss and/or airspace consolidation Discharge Plan - Discharge Disposition Patient Disposition: Discharge Home - Discharge Condition Condition: Stable - Discharge Order Discharge Orders: Discharge Order (Routine); Ordered 05/03/18 Ordered By: Alec Marinelli - Discharge Details Anticipated Discharge Date: 04/29/18 - Physicians Team Attending Provider: Alec Marinelli
[2018-05-03 19:02] VITALS: BP 124/59; PULSE 82; RESP 18; TEMP 97.8; O2SAT 98
== END 2018-05-03 20:26 | disposition home or self-care (01) | DRG 689 ==
LOC: NEPE 13:57 → NEDA 19:33 → N06 21:40
PROVIDERS: ADMIT Hospitalist; ATTEND Hospitalist
DX: K21.9 Gastro-esophageal reflux disease without esophagitis; Z98.84 Bariatric surgery status; N39.0 Urinary tract infection, site not specified; E03.9 Hypothyroidism, unspecified; B96.20 Unspecified Escherichia coli [E. coli] as the cause of diseases classified elsewhere; J18.9 Pneumonia, unspecified organism; M54.9 Dorsalgia, unspecified; Z68.44 Body mass index [BMI] 60.0-69.9, adult; E66.01 Morbid (severe) obesity due to excess calories; Z93.4 Other artificial openings of gastrointestinal tract status
CPT/HCPCS: 71010; 71045; 74177; 76604; 76937; 80048; 80053; 81001; 83605; 83690; 83735; 85025; 85027; 85610; 87040; 87086; 90774; 90775; 90784; 94150; 94640; 94664; 94665; 96374; 96375; 99285; C8952; J0456; J0692; J1940; J2270; J2405; J7030; J7050; Q9967